=== PATIENT | female | born 1960 | race Hispanic/Latino ===

== ENCOUNTER → 2025-05-01 | Outpatient (CLI) | payer OTHER, MEDICARE ==
[~2025-05-01] MED LIST: AMLO-258 PO; ASPI-1197 PO; ENAL-91 PO; GADOTERATE MEGLUMINE 10 MMOL/20 ML VIAL IV ONE; METO25TA6 PO; NAPR-1194 PO; TRAM-543 PO
--- NOTE | 2025-05-02 14:00 | HMCIMG ---
EXAM: MR Brain Without and With IV Contrast CLINICAL HISTORY: Benign neoplasm of the brain. TECHNIQUE: Multiplanar multi-sequence MRI of the brain. CONTRAST: Yes. COMPARISON: MRI dated 06/20/15. FINDINGS: Right parietal bur holes noted. Well-defined rounded T1 iso to hypointense, T2 hyperintense lesion with significant blooming on the gradient images and without any significant postcontrast enhancement measuring approximately 1.3 x 0.9 cm in the subcortical white matter of the left frontal lobe. Mild gliosis noted in the right parietal lobe. Partial empty sella noted. No evidence of acute cortical infarction, or mass effect. The ventricular system is normal in size, shape, and contour. No hydrocephalus. No abnormal extra-axial fluid collection is present. The marrow signal within the skull base and calvarium is intact. Mild right maxillary, right frontal and right anterior ethmoid sinusitis. Fluid signal noted in the bilateral mastoid air cells, likely reactive effusion versus mastoiditis. IMPRESSION: No acute intracranial abnormality. Well-defined lesion in the subcortical white matter of the left frontal lobe as described in the findings. 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 Mild gliosis in the right parietal lobe. Likely sequelae of prior surgery. Recommend correlation with history. No significant interval changes. /[place]
== END | disposition home or self-care (01) ==
LOC: RAH 08:44
PROVIDERS: ATTEND Nurse Practitioner Family
DX: J32.0 Chronic maxillary sinusitis (principal); J32.1 Chronic frontal sinusitis; J32.2 Chronic ethmoidal sinusitis; G93.89 Other specified disorders of brain; R51.9 Headache, unspecified; R42 Dizziness and giddiness; Z86.011 Personal history of benign neoplasm of the brain
CPT/HCPCS: 70553; A9575